=== PATIENT | male | born 1990 | race Caucasian/White ===

== ENCOUNTER 2019-04-10 08:19 | Inpatient (IN) | payer OTHER ==
[~2019-04-10] VITALS: Ht 180.3 cm; Wt 86.0 kg
[2019-04-10] VITALS (13 sets, daily range): BP systolic 80–130; BP diastolic 41–69
--- NOTE | 2019-04-10 08:36 | NUR ---
BIB MEDIC S/P DRUG OVERDOSE. HEROINE SUSPECTED. PT DRUG OF CHOICE: HEROINE. PT GIVEN NARCAN 1.5MG INTRANASAL AND 0.5MG IV IN FIELD. PRESENTS GROANING AND THRASHING ABOUT. INCOMPREHENSIBLE MOAN/BABBLE. APOLLO 2MM BRISK, LUNGS CTA. NO ADVENTITOUS LUNGS SOUND NOTED. TRACHE MIDLINE. NO EVIDENCE OF TRAUMA NOTED. ABD SOFT SUPPLE. PT DRAPER. SKIN COOL TO TOUCH, MOTTLED AT LOWER EXT. COMFORT MEASURES AND SUPPORTIVE CARE INITIATED. DR. HERNANDEZ AT FOR [facility] [place]. AGENCY DOCUMENTATION DONE BY Staff Name/Title - :FENG KHAN RN [facility] User ID - :[id number] Agency Name - :CERTIFIED Time Documented - From - :0700 To - :1900
--- NOTE | 2019-04-10 09:05 | NUR ---
INTUBATED BY DR. HERNANDEZ. PT ODALIS WELL. ADEQUATE SEDATION FOR INTUBATION ACHIEVED. PROPFOL DOSE PER WEIGHT INITIATED. TO TITRATE FOR EFFECT. PENDING POST INTUBATION PCXR. COMFORT MEASURES AND SUPPORTIVE CARE CONTINUED.
[2019-04-10 09:06] LABS: RED CELL DISTRIBUTION WIDTH 13.3 % (11.5-14.5)
[2019-04-10 09:15] LABS: UA SPECIFIC GRAVITY >=1.030 (1.005-1.035); microscopic required? YES; urine erythrocyte NEGATIVE (NEGATIVE)
[2019-04-10 09:17] LABS: PLATELET COUNT 275 x10^3mcL (130-400)
[2019-04-10 09:21] LABS: AMPHETAMINE QUAL UR NONE DETECTED (See below)
[2019-04-10 09:21] LABS: CALCIUM 8.6 mg/dL (8.5-10.1); CARBON DIOXIDE 22.4 mmol/L (21-32); CHLORIDE SERUM 107 mmol/L (98-107); CREATININE SERUM 2.7 mg/dL (0.7-1.3); GFR1 30 mL/min; GLUCOSE SERUM 143 mg/dL (74-106); POTASSIUM SERUM 4.9 mmol/L (3.5-5.1); SODIUM SERUM 147 mmol/L (136-145)
--- NOTE | 2019-04-10 09:22 | NUR ---
LOW O2 SAT NOTED. RT AT BS. DISCUSSED WITH DR. HERNANDEZ. PLAN OF CARE CONTINUED
[2019-04-10 09:27] LABS: ALBUMIN 3.6 g/dL (3.4-5.0); ALKALINE PHOSPHATASE 86 U/L (46-116); ALT/SGPT 75 U/L (16-63); AST/SGOT 120 U/L (15-37); BILIRUBIN TOTAL 0.3 mg/dL (0.20-1.00); TOTAL PROTEIN, SERUM 7.3 g/dL (6.4-8.2)
[2019-04-10 09:54] LABS: BAND NEUTROPHIL 28 % (0-10); BASOPHIL 0 % (0-2); METAMYELOCTE 1 % (0-2); MONOCYTE 2 % (0-7); SEGMENTED NEUTROPHILS 55 % (37-75); rbc morphology (normal/abnorm) NORMAL (NORMAL)
[2019-04-10 09:55] LABS: PLATELET MORPHOLOGY GIANT PLATELET SEEN
--- NOTE | 2019-04-10 10:56 | NUR ---
VENT CHANGES TO TV-500, RATE: 18, FIO2 100%, PEEP_7 DR. HULL
--- NOTE | 2019-04-10 11:34 | NUR ---
SEEN BY ADMITTING MD. PENDING ADMIT TO ICU. LOW B/P CONTINUED. TO UPDATE DR. HERNANDEZ AFTER LTR #3 COMPLETE.
--- NOTE | 2019-04-10 12:50 | NUR ---
REPORT TO GIA AGUILERA. PT REMAINS STABLE. CONDITON UNCHANGED. VENT SETTINGS UNCHANGED. LEVOPHED AT 4 MCG.
--- NOTE | 2019-04-10 13:09 | NUR ---
PT ADMITTED TO ICU AT THIS TIME FROM THE ED. REPORT RECEIVED FROM FENG AGUILERA. PT ARRIVED INTUBATED, HANDBAGGED ON ROUTE TO ICU FROM ED. PT AROUSABLE TO VOICE, PUPILS 2MM SLUGGISH RESPONSE TO LIGHT. PT ABLE TO FOLLOW SOME SIMPLE COMMANDS, UNABLE TO COMMUNICATE NEEDS. PROPOFOL GTT BROUGHT OVER WITH PT, BUT NOT INFUSING. LEVOPHED GTT INFUSING @ 4 MCG/MIN TO RIGHT 20G AC PIV. PT HAS 22G LEFT FOREARM PIV, SALINE LOCKED, PATENT AND EASILY FLUSHED. IV SITES CDI, WNL. VS ON ADMIT: HR 123, BP 86/41 (61), T 99.2, SPO2 99%, RR 30. ETT TO VENT. VENT ON A/C VCV, VT 500, PEEP 5, FIO2 100%, RATE 18. ETT SECURED TO FACE WITH ANCHOR FAST @ 25 CM LL. FINE CRACKLES NOTED BILATERAL LUNGS, PT NOTED TO BE BREATHING WITH ABDOMINAL MUSCLE USE. SKIN APPEARS OVERALL INTACT, 3 OLD PARALLEL SCARS NOTED TO RIGHT INNER THIGH. 1 SMALL ECCHYMOSIS TO LEFT A/C AREA. PT HAS BILATERAL SOFT WRIST RESTRAINTS, SECURED TO BED. BOWEL SOUNDS ACTIVE. 60 ML BILIOUS LIQUID ASPIRATED FROM OGT. OGT SECURED TO ETT. AIR BOLUS AUSCULTATED OVER GASTRIC REGION. ABD SOFT, FLAT. RADIAL & PEDAL PULSES PALPABLE. EXTREMITIES WARM, DRY. CAP REFILL <3 SEC. NO PERIPHERAL EDEMA NOTED. PT'S HT IS 5'11" AND WT IS 86.2 KG. WILL CARRY OUT ORDERS AND CONTINUE TO MONITOR.
--- NOTE | 2019-04-10 14:50 | NUR ---
VENT WAS ALARMING AND RN FOUND PT SITTING UP IN BED, AWAKE. PROPOFOL GTT RESTARTED AT THIS TIME TO KEEP PT CALM AND SEDATED. WILL CONTINUE TO MONITOR.
--- NOTE | 2019-04-10 15:10 | NUR ---
RN GOT IN CONTACT WITH DR. HULL AT THIS TIME. DR. HULL SUGGESTED SWITCHING SEDATION TO FENTANYL AND VERSED GTT'S AND TO KEEP THE PT WELL SEDATED.
--- NOTE | 2019-04-10 16:31 | NUR ---
INITIATED FENTANYL @ 1 MCG/KG/HR AND VERSED @ 1 MG/HR AT THIS TIME. PROPOFOL DISCONTINUED.
--- NOTE | 2019-04-10 17:17 | NUR ---
MOTHER AND STEP FATHER OF PT AT BEDSIDE.
--- NOTE | 2019-04-10 17:55 | NUR ---
SMALL WOUNDS NOTED ON RIGHT GREAT TOE, MIDDLE TOE, AND 4TH TOE. PER STEPFATHER OF PT, THAT IS WHERE THE PT INJECTED THE HEROIN.
--- NOTE | 2019-04-10 18:16 | NUR ---
NIBP 110/61, MAP 77. LEVOPHED TITRATED DOWN TO 4 MCG/MIN. ALE NIELSEN MADE AWARE. WILL CONTINUE TO MONITOR.
--- NOTE | 2019-04-10 19:20 | NUR ---
REPORT GIVEN TO TONO AGUILERA AND MICAELA AGUILERA. ALL CARE ASSUMED.
--- NOTE | 2019-04-10 19:30 | NUR ---
REPORT RECEIVED FROM GIA AGUILERA TO ASSUME CARE. PT INTUBATED AND SEDATED ON FENTANYL 1 MCG/KG/HR, VERSED 1 MG/HR WITH RSS 4. RESPONDS TO COMMAND AND TACTILE STIMULI. PERRLA NOTED. 7.5 ETT INTACT AND SECRURED, 25 CM@LL. OGT INTACT AND SECURED. EENT FREE OF DISCHARGE. TANK CAR LOADER IN PLACE SHOWING ST WITH HR 108, BP 101/48 (MAP 65). PULSES MODERATE TO EXTREMITIES X 4. CAP REFILL < 3 SECONDS. SKIN DRY AND WARM. NO EDEMA. PERIPHERAL IV TO RAC AND LFA INTACT, PATENT. IV FLUID D5NS INFUSING @80 ML/HR. GENERALIZED WEAKNESS NOTED. BUE SOFT WRIST RESTRAINTS IN PLACE PATIENT SAFETY. GOOD CIRCULATION NOTED. ABD SOFT AND ROUNDED TO TOUCH. BOWEL SOUNDS HYPOACTIVE X 4. NPO AT THIS TIME, WAITING FOR KUB RESULT. LAWRENCE INTACT AND DRAINING VIA GRAVITY, YELLOW URINE. DRY SCABS NOTED TO RIGHT FOOT DATA MANAGEMENT ANALYST. TURN AND REPOSITION Q2H. ALL NEEDS MET AT THIS TIME. WILL CONTINUE TO MONITOR.
--- NOTE | 2019-04-10 20:00 | NUR ---
XRAY AT BEDSIDE.
--- NOTE | 2019-04-10 21:45 | NUR ---
PT RESTLESS AND AGITATED. VERSED TITRATED TO 3 MG/HR.
--- NOTE | 2019-04-10 21:57 | NUR ---
RT CHRIS AT BEDSIDE. FIO2 TITRATED TO 60%. PT CURRENT O2 SAT 100%. WILL CONTINUE TO MONITOR.
--- NOTE | 2019-04-10 22:12 | NUR ---
SPOKE TO DR. HULL VIA TELEPHONE. MADE AWARE OF MOST RECENT KUB RESULTS. PER DR. HLUL OKAY TO USE OGT. RECOMMENDED TUBE FEEDING. DR. HULL SAYS HE WILL REASSES IN AM.
--- NOTE | 2019-04-10 22:15 | NUR ---
AX TEMP 100.4. PT MEDICATED WITH TYLENOL 650 MG VIA OGT PER EMAR. COOLING MEASURES IN PLACE. WILL CONTINUE TO MONITOR.
--- NOTE | 2019-04-10 23:41 | NUR ---
RT PEREZ AT BEDSIDE. DECREASED FIO2 TO 40%. PATIENT O2 SAT 99%. WILL CONTINUE TO MONITOR.
[2019-04-11] VITALS (17 sets, daily range): BP systolic 102–140; BP diastolic 48–91
--- NOTE | 2019-04-11 04:00 | NUR ---
FULL BED BATH PROVIDED. GOWN, CHUX, LINEN CHANGE. ORAL CARE, BRY CARE, LAWRENCE CARE PROVIDED. HEELS OFFLOADED. PT POSITIONED FOR COMFORT.
--- NOTE | 2019-04-11 05:05 | NUR ---
LUMBER TALLIER AT BEDSIDE FOR AM BLOOD DRAW.
[2019-04-11 06:05] LABS: ALKALINE PHOSPHATASE 45 U/L (46-116); ALT/SGPT 68 U/L (16-63); AST/SGOT 137 U/L (15-37); BILIRUBIN TOTAL 0.36 mg/dL (0.20-1.00); CALCIUM 6.9 mg/dL (8.5-10.1); CARBON DIOXIDE 25.6 mmol/L (21-32); CHLORIDE SERUM 111 mmol/L (98-107); CREATININE SERUM 1.3 mg/dL (0.7-1.3); GFR1 > 60 mL/min; GLUCOSE SERUM 117 mg/dL (74-106); POTASSIUM SERUM 3.9 mmol/L (3.5-5.1); SODIUM SERUM 145 mmol/L (136-145)
[2019-04-11 06:06] LABS: ALBUMIN 2.4 g/dL (3.4-5.0); TOTAL PROTEIN, SERUM 5.5 g/dL (6.4-8.2)
--- NOTE | 2019-04-11 06:06 | NUR ---
SALES PROPERTY MANAGER AT BEDSIDE.
[2019-04-11 06:10] LABS: PLATELET COUNT 163 x10^3mcL (130-400); RED CELL DISTRIBUTION WIDTH 13.7 % (11.5-14.5)
[2019-04-11 06:12] LABS: BASOPHIL % 0 % (0-2)
--- NOTE | 2019-04-11 06:30 | NUR ---
7.5 ETT 25 CM @ LL INTACT, SECURED. VENT SETTINGS: AC MODE, RATE 18, VT 500, PEEP 7, FIO2 40. OGT IN PLACE AND SECURED. PT SEDATED ON VERSED @ 3 MG/HR, FENTANYL 1 MCG/KG/HR, RSS 4. LAWRENCE CATH INTACT, SECURE, DRAINING VIA GRAVITY. D5NS INFUSING @ 80 ML/HR. RAC, LFA SECURED, NO S/SX OF INFILTRATION NOTED. PT ON NICHOLAS SOFT WRIST RESTRAINTS FOR SAFETY. CALM AND COOPERATIVE. BED IN LOW POSITION, CALL LIGHT IN REACH. WILL CONTINUE TO MONITOR.
--- NOTE | 2019-04-11 06:51 | NUR ---
REPORTED CRITICAL LAB VALUE WBC 21.3 WITH EPISODE OF ELEVATED TEMP 100.[address] HULL, NO NEW ORDERS GIVEN.
--- NOTE | 2019-04-11 07:05 | NUR ---
REPORT GIVEN TO GIA AGUILERA. ALL CARE ASSUMED.
--- NOTE | 2019-04-11 07:10 | NUR ---
REPORT RECEIVED FROM ALE HINOJOSA. ALL CARE ASSUMED.
--- NOTE | 2019-04-11 08:00 | NUR ---
DR. HULL AT BEDSIDE. UPDATES PROVIDED, QUESTIONS ANSWERED. NO CHANGES AT THIS TIME TO POC.
--- NOTE | 2019-04-11 08:09 | NUR ---
ABG DRAWN AND SHOWN TO DR HULL. PER DR HULL, KEEP FIO2 IS TODAY AND TOMORROW ATTEMPT TO WEAN DOWN FOR A POSS EXTUBATION TOMORROW. RN NOTIFIED. WILL CONTINUE TO MONITOR.
--- NOTE | 2019-04-11 09:18 | NUR ---
UPDATED ALLERGY STATUS TO "NO KNOWN ALLERGIES" AT THIS TIME. RN ASKED MOTHER OF PT IF HE HAD ANY ALLERGIES AND SHE DENIED ANY.
--- NOTE | 2019-04-11 10:21 | NUR ---
PT RESTING COMFORTABLY AT THIS TIME, NO S/S DISTRESS NOTED.
--- NOTE | 2019-04-11 11:10 | NUR ---
IV TO LFA NOTED TO BE INFILTRATED. IV FLUID STOPPED TO THIS IV AND MOVED TO RAC IV. PT DENIES PAIN TO LEFT ARM BY GESTURING. WILL D/C IV AND START NEW ONE.
--- NOTE | 2019-04-11 12:55 | NUR ---
MOTHER OF PT AT BEDSIDE WITH 1 OTHER RELATIVE.
--- NOTE | 2019-04-11 14:00 | NUR ---
NEW 20G IV STARTED TO RIGHT FOREARM AT THIS TIME, GOOD BLOOD RETURN AND FLUSHES EASILY. PT TOLERATED NEW IV WELL. PIV TO LEFT FOREARM DISCONTINUED AT THIS TIME WELL, CATHETER TIP INTACT.
--- NOTE | 2019-04-11 15:36 | NUR ---
TUBE FEEDING VIA OGT INITIATED AT THIS TIME. JEVITY 1.2 INITIATED AT 20 ML/HR, GOAL RATE IS 50 ML/HR.
--- NOTE | 2019-04-11 18:00 | NUR ---
2 FAMILY MEMBERS AT BEDSIDE. PT CALM.
--- NOTE | 2019-04-11 19:30 | NUR ---
REC'D REPORT FROM GIA AGUILERA TO ASSUME CARE. PT INTUBATED AND SEDATED ON VERSED 3 MG/HR AND FENTANYL 1 MCG/KG/HR. RSS4. RESPONDS TO TACTILE STIMULI AND COMMANDS. PERRLA, 3MM/BRISK. 7.5 ETT INTACT AND SECURED, 25 CM @ LL. VENT SETTINGS: AC MODE, RATE 18, VT 500, PEEP 7, FIO2 40. PT BREATHING E/U, CHEST EXPANSION ORAL CARE PROVIDED PER VAP PROTOCOL. SYMMETRICAL, LUNG SOUNDS CLEAR NICHOLAS. DAMAGE PREVENTION COORDINATOR IN PLACE SHOWING NSR, BP 138/89, HR 91. OGT INTACT AND SECURED, INFUSING JEVITY 20 ML/HR. HQR=115 ML. TURNED OFF FEEDING AT 1930 DUE TO GRV. ABD SOFT AND ROUNDED. BOWEL SOUNDS HYPOACTIVE X 4Q. NO BM. LAWRENCE INTACT AND DRAINING VIA GRAVITY. YELLOW URINE. NO SCROTAL EDEMA OR PENILE DISCHARGE. PULSES MODERATE TO EXTREMITIES X 4. CAP REFILL < 3 SEC. SKIN WARM, DRY, INTACT. DRIED SCABS NOTED TO 3 TOES ON RIGHT FOOT. PERIPHERAL IV TO RAC PATENT AND INTACT. IV FLUIDS INFUSING D5NS @ 80 ML/HR. GENERALIZED WEAKNESS. PT ON SOFT WRIST RESTRAINTS NICHOLAS FOR SAFETY, GOOD CIRCULATION NOTED. FAMILY AT BEDSIDE. WILL CONTINUE TO MONITOR.
--- NOTE | 2019-04-11 19:30 | NUR ---
REC'D REPORT FROM GIA AGUILERA TO ASSUME CARE. PT INTUBATED AND SEDATED ON VERSED 3 MG/HR AND FENTANYL 1 MCG/KG/HR. RSS4. RESPONDS TO TACTILE STIMULI AND COMMANDS. PERRLA, 3MM/BRISK. 7.5 ETT INTACT AND SECURED, 25 CM @ LL. VENT SETTINGS: AC MODE, RATE 18, VT 500, PEEP 7, FIO2 40. PT BREATHING E/U, CHEST EXPANSION ORAL CARE PROVIDED PER VAP PROTOCOL. SYMMETRICAL, LUNG SOUNDS CLEAR NICHOLAS. BRINE PROCESS OPERATOR IN PLACE SHOWING NSR, BP 138/89, HR 91. OGT INTACT AND SECURED, INFUSING JEVITY 20 ML/HR. RBZ=128 ML. TURNED OFF FEEDING AT 1930 DUE TO GRV. ABD SOFT AND ROUNDED. BOWEL SOUNDS HYPOACTIVE X 4Q. NO BM. LAWRENCE INTACT AND DRAINING VIA GRAVITY. YELLOW URINE. NO SCROTAL EDEMA OR PENILE DISCHARGE. PULSES MODERATE TO EXTREMITIES X 4. CAP REFILL < 3 SEC. SKIN WARM, DRY, INTACT. DRIED SCABS NOTED TO 3 TOES ON RIGHT FOOT. PERIPHERAL IV TO RAC AND LFA PATENT AND INTACT. IV FLUIDS INFUSING D5NS @ 80 ML/HR. GENERALIZED WEAKNESS. PT ON SOFT WRIST RESTRAINTS NICHOLAS FOR SAFETY, GOOD CIRCULATION NOTED. FAMILY AT BEDSIDE. WILL CONTINUE TO MONITOR.
--- NOTE | 2019-04-11 19:30 | NUR ---
REC'D REPORT FROM GIA AGUILERA TO ASSUME CARE. PT INTUBATED AND SEDATED ON VERSED 3 MG/HR AND FENTANYL 1 MCG/KG/HR. RSS4. RESPONDS TO TACTILE STIMULI AND COMMANDS. PERRLA, 3MM/BRISK. 7.5 ETT INTACT AND SECURED, 25 CM @ LL. VENT SETTINGS: AC MODE, RATE 18, VT 500, PEEP 7, FIO2 40. PT BREATHING E/U, CHEST EXPANSION ORAL CARE PROVIDED PER VAP PROTOCOL. SYMMETRICAL, LUNG SOUNDS CLEAR NICHOLAS. WIRE MACHINE CUTTER IN PLACE SHOWING NSR, BP 138/89, HR 91. OGT INTACT AND SECURED, INFUSING JEVITY 20 ML/HR. DXK=090 ML. TURNED OFF FEEDING AT 1930 DUE TO GRV. ABD SOFT AND ROUNDED. BOWEL SOUNDS HYPOACTIVE X 4Q. NO BM. LAWRENCE INTACT AND DRAINING VIA GRAVITY. YELLOW URINE. NO SCROTAL EDEMA OR PENILE DISCHARGE. PULSES MODERATE TO EXTREMITIES X 4. CAP REFILL < 3 SEC. SKIN WARM, DRY, INTACT. DRIED SCABS NOTED TO 3 TOES ON RIGHT FOOT. PERIPHERAL IV TO RAC AND RFA PATENT AND INTACT. IV FLUIDS INFUSING D5NS @ 80 ML/HR. GENERALIZED WEAKNESS. PT ON SOFT WRIST RESTRAINTS NICHOLAS FOR SAFETY, GOOD CIRCULATION NOTED. FAMILY AT BEDSIDE. WILL CONTINUE TO MONITOR.
--- NOTE | 2019-04-11 20:55 | NUR ---
TEMP RECHECKED, 100.7. COOLING MEASURES AND TYLENOL PROVIDED AT THIS TIME. WILL REASSESS.
--- NOTE | 2019-04-11 21:07 | NUR ---
RESIDUAL RECHECKED, GRV = 180 ML. TUBE FEEDING REMAINS OFF. WILL REASSESS.
--- NOTE | 2019-04-11 21:55 | NUR ---
TEMP RECHECK OF 100.0F. COOLING MEASURES REMAIN IN PLACE. WILL CONTINUE TO MONITOR.
--- NOTE | 2019-04-11 22:10 | NUR ---
RESIDUAL CHECKED, [id number]. RESTARTED TUBE FEEDING OF JEVITY @ 20 ML/HR. WILL CONTINUE TO MONITOR.
[2019-04-12] VITALS (13 sets, daily range): BP systolic 134–160; BP diastolic 80–100; Ht 180.3 cm; Wt 86.0 kg
--- NOTE | 2019-04-12 00:30 | NUR ---
RESIDUAL FOUND TO BE 0 ML. INCREASED JEVITY TO 30 ML/HR.
--- NOTE | 2019-04-12 04:00 | NUR ---
RESIDUAL 100 ML. TUBE FEEDING INCREASED TO 40 ML/HR.
--- NOTE | 2019-04-12 04:30 | NUR ---
VERSED TITRATED TO 1 MG/HR. WILL CONTINUE TO MONITOR.
--- NOTE | 2019-04-12 04:39 | NUR ---
TOTAL BED BATH PROVIDED, LINENS CHANGED. LAWRENCE CATH CARE PROVIDED. REPOSITIONED AT THIS TIME TO COMFORT.
[2019-04-12 05:30] LABS: CALCIUM 8.1 mg/dL (8.5-10.1); CARBON DIOXIDE 28.6 mmol/L (21-32); CHLORIDE SERUM 110 mmol/L (98-107); CREATININE SERUM 0.8 mg/dL (0.7-1.3); GFR1 > 60 mL/min; GLUCOSE SERUM 115 mg/dL (74-106); MAGNESIUM 2.1 mg/dL (1.8-2.4); POTASSIUM SERUM 3.8 mmol/L (3.5-5.1); SODIUM SERUM 144 mmol/L (136-145)
[2019-04-12 05:52] LABS: PLATELET COUNT 147 x10^3mcL (130-400); RED CELL DISTRIBUTION WIDTH 13.3 % (11.5-14.5)
--- NOTE | 2019-04-12 07:00 | NUR ---
DR. QUEVEDO AT BEDSIDE, UPDATED ON STATUS. STATES TO TURN OFF SEDATION. WILL START WEANING AND POSSIBLE EXTUBATION TODAY. SEDATION TURNED OFF AT THIS TIME.
--- NOTE | 2019-04-12 07:09 | NUR ---
REPORT GIVEN TO AZAM AGUILERA. ALL CARE ASSUMED.
--- NOTE | 2019-04-12 08:00 | NUR ---
PT'S TEMP 100.6, START COOLING MEASURES. WILL GIVE TYLENOL PER PRN ORDER.
--- NOTE | 2019-04-12 08:30 | NUR ---
PER DR. WILLIS WEANING PT TO CPAP ORDER. MADE RT CHRIS AWARE THAT PT IS AWAKE AND OFF SEDATION FOR CPAP WEANING.
--- NOTE | 2019-04-12 09:54 | NUR ---
TUBE FEEDINGS TURNED OFF AT THIS TIME FOR POSSIBLE EXTUBATION. ALE NASCIMENTO MADE AWARE. RT CHRIS OBTAINING WEANING PARAMETERS. RT CALLED DR. QUEVEDO WITH RESULTS BUT NOT IN HIS OFFICE AT THIS TIME. WILL WAIT FOR CALL BACK. WILL CONTINUE TO MONITOR.
--- NOTE | 2019-04-12 10:01 | NUR ---
PT'S MON AND GRANDMA AT BEDSIDE. PT TOLERATE WELL ON CPAP WEANING. TUBE FEEDING IS HELD AT THIS TIME FOR POSSIBLE EXTUBATION.
--- NOTE | 2019-04-12 10:44 | NUR ---
RECHECKED PT'S TEMP 99.4
--- NOTE | 2019-04-12 12:20 | NUR ---
PER DR. NICHOLS ORDER, PT IS EXTUBATED WITH OGT REMOVED TOGETHER AT 1220 PM. PT'S MOM AT BEDSIDE. PT COMPLAINED OF LLE NUMBNESS, TINGLING AND UNABLE TO MOVE. FULL PASSIVE ROM. AFTER A FEW TIMES PASSIVE MOVING LLE, PT IS ABLE TO FEEL TOUCH ON HIS FOOT, STILL STATES NUMBNESS FROM LOW LEG ABOVE ANKLE TO THIGH. PT IS UNVOLUNTARILY MOVING HIS LEFT LEG. RT NACY AND RT STUDENT AT BEDSIDE SEE THIS MOVEMENT. WILL CONTINUE TO MONITOR.
--- NOTE | 2019-04-12 12:53 | NUR ---
PT WAS EXTUBATED @ 1220 AND PLACED ON 6L OXYMIZER. CALLED DR. QUEVEDO FOR BREATHING TX. TX GIVEN AT 1250. WILL CONTINUE TO [facility].
[2019-04-12 13:36] LABS: BAND NEUTROPHIL 1 % (0-10); BASOPHIL 0 % (0-2); SEGMENTED NEUTROPHILS 91 % (37-75); rbc morphology (normal/abnorm) ABNORMAL (NORMAL)
[2019-04-12 13:37] LABS: PLATELET MORPHOLOGY PLATELETS DECREASED
--- NOTE | 2019-04-12 14:51 | NUR ---
PT'S BP 159/110, HR 63. MADE DR. NICHOLS AWARE AND OBTAINED TELE ORDER READ BACK: HYDRALAZINE 10MG IVP Q4H PRN FOR SBP > 160. PT TOLERATE WELL WITH ICE CHIP. WILL PERFORM BEDSIDE SWALLOW SCREEN IN AN HOUR. IF PT PASS SWALLOW SCREEN, WILL ORDER [place] DIET FOR DINNER PER DR. NICHOLS TELEPHONE ORDER.
--- NOTE | 2019-04-12 15:30 | NUR ---
BEDSIDE SWALLOW SCREEN DONE, PT IS ABLE TO SWALLOW PUDDING, JELO AND JUICE WITHOUT CHOKING AND COUGHING. WILL ADVANCE PT'S DIET TO FL DIET AT DINNER PER DR. SUTTON ORDER.
--- NOTE | 2019-04-12 15:50 | NUR ---
PT'S TEMP RECHECK 97.7. MADE DR. SUTTON AWARE PT COMPLAINED ABOUT LEFT LEG NUMBNESS AND UNABLE TO MOVE. PER DR. SUTTON'S TELEPHONE ORDER, KEEP MONITOR PT'S LEFT LEG SENSATION; START PT ON BLADDER TRAINING THEN DC LAWRENCE; REMAIN PT'S IVF NS TKO.
--- NOTE | 2019-04-12 16:50 | NUR ---
PT REPORT URINATING URGENCY AFTER ABOUT ONE HOUR LAWRENCE CATHETER CLAMPED. UNCLAMP LAWRENCE CATHETER, DRAINED 400ML URINE. RECLAMPED LAWRENCE CATHETER.
--- NOTE | 2019-04-12 17:18 | NUR ---
PT'S TEMP 99.8. PT COMPLAIN OF HERNANDEZ, TYELENOL GIVEN PER PRN ORDER. PT REMOVED OXYMIZER, AND REFUSED TO PUT BACK ON. O2 SAT AROUND 90%. PT'S MOM AT BEDSIDE. WILL CONTINUE TO MONITOR.
--- NOTE | 2019-04-12 17:26 | NUR ---
APPLIED O2 3L VIA NC TO MAINTAIN O2 SAT 92%.
--- NOTE | 2019-04-12 18:48 | NUR ---
PT FEELING URINATING URGENCY, UNCLAMPL LAWRENCE CATHETER. 400ML URINE DRAINED. REMOVED LAWRENCE CATHETER PER DR. SUTTON ORDER. PT TOLERATE WELL. PT BREATHING ON O2 2L VIA NC, O2 SAT 97%. PT STATED HERNANDEZ RESOLVED BY TYLENOL. PT IS ABLE TO MOVE HIS LEFT LEG, BUT STILL COMPLAIN OF NUMBNESS. CHERELLE ENDORSE PT'S CARE TO COMING NURSE. IVF TKO AT THIS TIME PER ORDER.
--- NOTE | 2019-04-12 19:15 | NUR ---
RECIEVED REPORT FROM ALE NASCIMENTO. NURSING UPDATES. POC DISCUSSED. RESUMED CARE OF PT. SEE SHIFT ASSESSMENT FOR ASSESSMENT.
--- NOTE | 2019-04-12 19:34 | NUR ---
ENDORSED PT'S CARE TO RECEIVING NURSE. PT RESTING ON BED, BREATHING ON O2 2L VIA NC, EVEN, UNLABORED. O2 SAT 98%.
--- NOTE | 2019-04-12 21:18 | NUR ---
PT NOTED W/ A HERNANDEZ COMPLAINING PAIN 7/10 PULSING. ADM PRN TYLENOL *(SEE MAR)*. WILL CONT TO MONITOR.
--- NOTE | 2019-04-12 21:37 | NUR ---
Dr Knapp paged regarding high blood pressure awaiting call back from (termite control technician) . Will continue to monitor.
--- NOTE | 2019-04-12 21:40 | NUR ---
After recycling blood pressure 145/59, paged to was cancelled.
--- NOTE | 2019-04-12 22:05 | NUR ---
PT W/ 300ML DARK YELLOW URINE. NO S/S OF DISTRESS. PT NOTED NO S/S OF DISTRESS FOR URINATIONG.
[2019-04-13 03:14] VITALS: BP 143/89
--- NOTE | 2019-04-13 04:11 | NUR ---
PT NOTED W/ HAVING SOLID FORMED BROWN BM BUT STRAINING NOTED. ABLE TO STAND BUT WEAKNESS ON LEFT LEG NOTED.
[2019-04-13 05:08] LABS: BASOPHIL % 0.3 % (0-2); PLATELET COUNT 199 x10^3mcL (130-400)
--- NOTE | 2019-04-13 05:18 | NUR ---
PT REFUSED CLEANING. PT RESTING COMFORTABLY IN BED. NO ACUTE CHANGES.
[2019-04-13 05:23] LABS: ALKALINE PHOSPHATASE 64 U/L (46-116); ALT/SGPT 56 U/L (16-63); AST/SGOT 76 U/L (15-37); BILIRUBIN DIRECT 0.19 mg/dL (0.0-0.2); BILIRUBIN TOTAL 0.6 mg/dL (0.20-1.00); CALCIUM 8.3 mg/dL (8.5-10.1); CARBON DIOXIDE 25.7 mmol/L (21-32); CHLORIDE SERUM 109 mmol/L (98-107); CREATININE SERUM 0.8 mg/dL (0.7-1.3); GFR1 > 60 mL/min; GLUCOSE SERUM 94 mg/dL (74-106); POTASSIUM SERUM 3.2 mmol/L (3.5-5.1); SODIUM SERUM 146 mmol/L (136-145); TOTAL PROTEIN, SERUM 6.2 g/dL (6.4-8.2)
[2019-04-13 05:24] LABS: ALBUMIN 2.4 g/dL (3.4-5.0)
--- NOTE | 2019-04-13 06:35 | NUR ---
PT REPORTED PAIN 7/10 WHOLE BODY AND LEFT LEG. ADM PRN MORPHINE SULFATE *(SEE MAR)*. WILL CONT TO MONITOR.
[2019-04-13 08:00] VITALS: BP 125/51
[2019-04-13 12:00] VITALS: BP 148/75
[2019-04-13 13:14] VITALS: BP 148/75
[2019-04-13] MEDS ORDERED: AUG500 PO (13:53)
[2019-04-13 16:45] VITALS: BP 138/86
[2019-04-13 18:08] VITALS: BP 161/102
== END 2019-04-13 19:00 | disposition home or self-care (01) | DRG 720 ==
LOC: ED 08:19 → IC 10:30 → EDBEDREQ 10:33 → IC 13:32
PROVIDERS: Emergency Medicine; Internal Medicine; ADMIT Internal Medicine Pulmonary Disease
PROC: 5A1945Z Respiratory Ventilation, 24-96 Consecutive Hours (ICD-10-PCS; principal; 2019-04-10)
PROC: 0BH17EZ Insertion of Endotracheal Airway into Trachea, Via Natural or Artificial Opening (ICD-10-PCS; 2019-04-10)
DX: A41.9 Sepsis, unspecified organism (principal); J96.01 Acute respiratory failure with hypoxia; J69.0 Pneumonitis due to inhalation of food and vomit; R65.21 Severe sepsis with septic shock; G93.41 Metabolic encephalopathy; E87.2 Acidosis; N17.9 Acute kidney failure, unspecified; F15.10 Other stimulant abuse, uncomplicated; F12.10 Cannabis abuse, uncomplicated; T40.1X1A Poisoning by heroin, accidental (unintentional), initial encounter; E87.6 Hypokalemia; E87.0 Hyperosmolality and hypernatremia; B19.20 Unspecified viral hepatitis C without hepatic coma; Y92.098 Other place in other non-institutional residence as the place of occurrence of the external cause; Z68.25 Body mass index [BMI] 25.0-25.9, adult
CPT/HCPCS: 31500; 36600; 90658; A4628; C9113; G0378; G0480; J0330; J0360; J1650; J2060; J2250; J2270; J2405; J2543; J2704; J3010; J3490; J7030; J7042; J7613; Q0092